=== PATIENT | female | born 1955 | race Caucasian/White ===

== ENCOUNTER → 2016-11-29 | Outpatient (CLI) | payer BC ==
[~2016-11-29] MED LIST: BIOTIN1 MG PO; CALCIUM + D 5001 TAB PO; HCTZ 25MG TAB25 MG PO; PREDNISONE20 MG PO
== END ==
LOC: SUN.DIA 08:11
DX: E11.9 Type 2 diabetes mellitus without complications (principal); I10 Essential (primary) hypertension; Z68.34 Body mass index [BMI] 34.0-34.9, adult; Z71.3 Dietary counseling and surveillance
CPT/HCPCS: G0108

== ENCOUNTER → 2016-12-01 | Outpatient (CLI) | payer BC | LOC: MC.RAD 11-17 11:00 | DX: Z12.31 Encounter for screening mammogram for malignant neoplasm of breast (principal) ==

== ENCOUNTER → 2017-07-03 | Outpatient (CLI) | payer BC | LOC: MC.RAD 10:12 | DX: N63.20 Unspecified lump in the left breast, unspecified quadrant (principal) ==

== ENCOUNTER → 2017-07-04 | Outpatient (CLI) | payer BC | LOC: MC.RAD 06:51 | DX: N63.32 Unspecified lump in axillary tail of the left breast (principal) ==

== ENCOUNTER → 2017-07-25 | Outpatient (CLI) | payer BC | LOC: COL.VAS 10:36 | DX: Z51.81 Encounter for therapeutic drug level monitoring (principal); Z79.899 Other long term (current) drug therapy; C50.912 Malignant neoplasm of unspecified site of left female breast ==

== ENCOUNTER → 2017-07-30 | Outpatient (CLI) | payer BC | LOC: MC.RAD 07-24 14:00 | DX: N63.22 Unspecified lump in the left breast, upper inner quadrant (principal) ==

== ENCOUNTER → 2017-07-31 | Outpatient (CLI) | payer BC | LOC: MC.RAD 06:49 | DX: N63.20 Unspecified lump in the left breast, unspecified quadrant (principal); Z85.3 Personal history of malignant neoplasm of breast ==

== ENCOUNTER → 2017-10-19 | Outpatient (CLI) | payer BC | LOC: COL.VAS 09:38 | DX: Z51.81 Encounter for therapeutic drug level monitoring (principal); C50.212 Malignant neoplasm of upper-inner quadrant of left female breast; Z79.899 Other long term (current) drug therapy ==

== ENCOUNTER 2017-12-19 06:37 | Day surgery (SDC) | payer BC ==
[~2017-12-19] VITALS: Ht 154.9 cm; Wt 76.8 kg
[2017-12-19 09:29] VITALS: BP 144/82; PULSE 78; TEMP 97.8
[2017-12-19] MEDS ORDERED: K-TAB20 PO (09:35)
[2017-12-19] MEDS ORDERED: GLUCOPHAGE500 MG/TAB PO (09:36)
[2017-12-19] MEDS ORDERED: ZYRTEC ALLERGY10 MG PO (09:36)
[2017-12-19 14:35] VITALS: BP 132/80; PULSE 80; TEMP 97.4
[2017-12-19 14:50] VITALS: BP 135/79; PULSE 98
[2017-12-19 15:05] VITALS: BP 129/78; PULSE 96
[2017-12-19 16:10] VITALS: BP 132/80; PULSE 74
== END 2017-12-19 16:00 | disposition home or self-care (01) ==
LOC: SDCO 06:37
DX: C50.212 Malignant neoplasm of upper-inner quadrant of left female breast (principal); C79.89 Secondary malignant neoplasm of other specified sites; Z92.21 Personal history of antineoplastic chemotherapy; E11.9 Type 2 diabetes mellitus without complications; Z79.84 Long term (current) use of oral hypoglycemic drugs; Z79.899 Other long term (current) drug therapy; I10 Essential (primary) hypertension; Z80.9 Family history of malignant neoplasm, unspecified
CPT/HCPCS: A9541; J0690; J1100; J2250; J2405; J2704; J2795; J3010; J7030; Q9968

== ENCOUNTER → 2018-02-15 | Outpatient (CLI) | payer BC ==
[~2018-02-15] MED LIST changes: +GLUCOPHAGE500 MG/TAB PO; +K-TAB20 PO; +ZYRTEC ALLERGY10 MG PO
== END ==
LOC: COL.VAS 09:38
DX: Z51.11 Encounter for antineoplastic chemotherapy (principal); C50.212 Malignant neoplasm of upper-inner quadrant of left female breast; I07.1 Rheumatic tricuspid insufficiency

== ENCOUNTER → 2018-05-31 | Outpatient (CLI) | payer BC | LOC: COL.VAS 08:00 | DX: C50.212 Malignant neoplasm of upper-inner quadrant of left female breast (principal) ==

== ENCOUNTER → 2018-08-30 | Outpatient (CLI) | payer BC | LOC: COL.VAS 07:36 | DX: C50.212 Malignant neoplasm of upper-inner quadrant of left female breast (principal); I51.7 Cardiomegaly ==

== ENCOUNTER → 2018-09-13 | Outpatient (CLI) | payer BC | LOC: MC.RAD 10:53 | DX: Z12.31 Encounter for screening mammogram for malignant neoplasm of breast (principal); C50.212 Malignant neoplasm of upper-inner quadrant of left female breast; Z92.3 Personal history of irradiation; Z92.21 Personal history of antineoplastic chemotherapy ==

== ENCOUNTER → 2019-02-20 | Outpatient (CLI) | payer BC | LOC: COL.RAD 09:56 | DX: M79.5 Residual foreign body in soft tissue (principal) ==

== ENCOUNTER → 2019-10-03 | Outpatient (CLI) | payer BC | LOC: MC.RAD 12:55 | DX: Z12.31 Encounter for screening mammogram for malignant neoplasm of breast (principal); Z85.3 Personal history of malignant neoplasm of breast; Z90.12 Acquired absence of left breast and nipple ==

== ENCOUNTER → 2020-10-04 | Outpatient (CLI) | payer BC | LOC: MC.RAD 10:06 | DX: Z12.31 Encounter for screening mammogram for malignant neoplasm of breast (principal); C50.212 Malignant neoplasm of upper-inner quadrant of left female breast ==

== ENCOUNTER → 2021-10-05 | Outpatient (CLI) | payer BC | LOC: MC.RAD 09:37 | DX: Z12.31 Encounter for screening mammogram for malignant neoplasm of breast (principal); Z85.3 Personal history of malignant neoplasm of breast ==

== ENCOUNTER → 2022-10-20 | Outpatient (CLI) | payer BC | LOC: MC.RAD 08:14 | DX: Z12.31 Encounter for screening mammogram for malignant neoplasm of breast (principal); C50.212 Malignant neoplasm of upper-inner quadrant of left female breast ==

== ENCOUNTER → 2024-02-14 | Outpatient (CLI) | payer BC | LOC: MC.RAD 08:59 | DX: Z12.31 Encounter for screening mammogram for malignant neoplasm of breast (principal); C50.212 Malignant neoplasm of upper-inner quadrant of left female breast ==